=== PATIENT | male | born 1980 | race Caucasian/White ===

== ENCOUNTER → 2025-04-10 08:10 | Outpatient (BNVA) | payer SELFPAY | PROVIDERS: Visit Provider Specialist | DX: S42.001A Fracture of unspecified part of right clavicle, initial encounter for closed fracture (principal); X58.XXXA Exposure to other specified factors, initial encounter | CPT/HCPCS: 73000 ==

== ENCOUNTER 2025-04-10 12:41 | Day surgery (SDC) | payer OTHER, SELFPAY ==
[2025-04-10] VITALS (10 sets, daily range): BP systolic 103–130; BP diastolic 72–94; PULSE 78–107; RESP 16–21; TEMP 36.3–37; O2SAT 90–98; BMI 32.1
--- NOTE | 2025-04-10 | XR_ITS ---
WS: [id number] Exam: [place] [id number] Date/Time of Exam: 04/10/2025 12:00 AM Reason For Exam: OR PICS DLP: Intraoperative C-arm images of the RIGHT clavicle are submitted for evaluation. Images depict plate and screw fixation involving a comminuted fracture of the distal clavicle. Alignment appears satisfactory based on images presented.
[2025-04-10] MEDS: acetaminophen 1,000 MG/100 ML PIGGYBACK 400 MG IV (13:26)
--- NOTE | 2025-04-10 13:51 | ANES.PREANE2 ---
Pre-Anesthetic Assessment Height/Weight: Height 1.8 m Weight 104.326 kg O2 Del Method Room Air 04/10/25 13:03 Operation Date: 04/10/25 14:00 Proposed Procedures p Open Reduction Internal Fixation RIGHT Clavicle Fracture(Right) - Dina Stevens MD Familial anesthetic complications: none Was Beta Mary taken within 24 hours: N/A Was Clonidine taken within 24 hours: N/A Last intake: Intake Last Liquid Date 04/10/25 Last Liquid Time 06:00 Last Solid Date 04/10/25 Last Solid Time 06:00 Social No alcohol Exam alert, oriented x 3, clear to auscultation bilaterally and regular rate & rhythm Airway Mallampati: Class II Dentition: full Anesthetic Plan ASA status: 1 Anesthesia: General and Regional (specify below) Risk of > 500 ml blood loss (7ml/kg in children): No Medications/Allergies Home Medications ?Medication ?Instructions ?Recorded ?Confirmed ?Last Taken ?Type No Known Home Medications 04/10/25 04/10/25 Unknown History Allergies Allergy/AdvReac Type Severity Reaction Status Date / Time No Known Allergies Allergy Unverified 04/10/25 07:51 [facility] Anesthesia Social History Smoking and tobacco/nicotine status: never used tobacco/nicotine Anesthesia Procedures Nerve Block Nerve Block 1: Main Anesthesia: general anesthesia Time Out Performed: Yes Consent: requested by attending/covering physician, from patient, from other, risks and benefits reviewed and patient agrees to proceed Nerve block location: interscalene (R) Anesthesia monitors applied: pulse oximetry, EKG, BP cuff and oxygen Nerve block position: semi sitting Anesthetic Used: ropivicaine 0.5% (20 ml) and with decadron (4 mg) Ultrasound used to: recognize landmarks, visualize and ID brachial plexus, in supraclavicular region and visualize and ID interscalene groove Nerve Stimulator Used?: No Interscalene/Femoral BLK: 2 stimuplex 22 g needle used for position and inplane approach, visualize local anesthetic spread and no vascular puncture identified Injection: neg aspiration of heme and paresthesia +/- (parasthesia in hand - injection halted and needle redirected) Patient Tolerated Procedure: well Complications: none
--- NOTE | 2025-04-10 14:41 | W.PM.OPSFHP ---
Same Day Surgery H&P Indication for Procedure/HPI DATE OF PROCEDURE: April 10, 2025 CHIEF COMPLAINT/INDICATIONFOR SURGICAL PROCEDURE: Right midshaft clavicle fracture, comminuted and displaced PREOP DIAGNOSIS: Right midshaft clavicle fracture, comminuted and displaced PLANNED PROCEDURE: Operation Date: 04/10/25 14:00 Proposed Procedures p Open Reduction Internal Fixation RIGHT Clavicle Fracture(Right) - Dina Stevens MD Medications/Allergies* Home Medications ?Medication ?Instructions ?Recorded ?Confirmed ?Type No Known Home Medications 04/10/25 04/10/25 History Allergies/Adverse Reactions Allergy/AdvReac Type Severity Reaction Status Date / Time No Known Allergies Allergy Unverified 04/10/25 07:51 Pertinent History/Comorbid Conditions* Social History Smoking and tobacco/nicotine status: never used tobacco/nicotine Pertinent Exam Findings alert, oriented x 3, clear to auscultation bilaterally, regular rate & rhythm and operative site marked Recommendations Surgery/Procedure today Coding Level of Care Code Acute Code for Chg [id number]
[2025-04-10] MEDS: ceFAZolin 2,000 mg SDV 2000 MG IVP (14:45)
[2025-04-10] MEDS: ceFAZolin 1,000 mg SDV 1000 MG IRRIGATION (16:10)
--- NOTE | 2025-04-10 17:09 | P.OP_ITS ---
Operative Report Date of procedure: April 10, 2025 Pre-op diagnosis: Comminuted 100% displaced lateral third right clavicle fracture with comminution and significant shortening Post-op diagnosis: Comminuted 100% displaced lateral third right clavicle fracture with comminution and significant shortening Post-op findings: Horizontal in addition to transverse fracture with significant displacement and shortening of the clavicle Procedure done: Open reduction internal fixation right distal third clavicle fracture with shortening, comminution, and 100% displacement with bone grafting with [place] DBM plus paste with cancellous bone Implants: The Hitesh superior lateral clavicular plate, 4-hole; Hitesh DBM plus paste with cancellous bone Specimens removed/disposition: None Pathology: None Surgeon: Dina Stevens MD Global Compensation Analyst: Amy Panda, nurse practitioner, who services were required for positioning, retraction, fracture reduction and retention, and closure Anesthesia: General (Intubated, ASA 1) Estimated blood loss (mL): 60 IV fluids (mL): 1,200 Urine output (mL): 0 (No Morales) Complications: None Findings: As noted above Condition: stable Disposition: PACU (Then return to same-day surgery for discharge to home) Brief History: This 44-year-old gentleman was in his usual state of health when he was working on his vehicle at home. Vehicle slipped and came down on the right shoulder. He was in a lateral position and this caused compression across the shoulder. Patient had immediate onset of pain, he was evaluated and found to have by x-ray comminuted, 100% displaced and shortened clavicle fracture at the junction of the mid and distal thirds. The patient came to my office today for evaluation. Decision was made for surgical intervention. Risks and complications of surgery were discussed with the patient and his family. Consents were signed and questions were answered. Procedure: The patient was brought to the operating theater and underwent general intubated anesthesia, ASA 1. The patient was placed in a beachchair position and subsequently the right upper extremity was prepped and draped in the usual fashion utilizing DuraPrep. Fluoroscopy was used to evaluate the fracture throughout the surgical procedure. A surgical pause was performed prior to commencement of the surgical procedure. At the time of the surgical pause, we confirmed the site and side of surgery as well as administration of appropriate preoperative antibiotics Ancef 2 g. Following the surgical pause, an incision was following fluoroscopic evaluation along the clavicle. The incision was extended cephalad and caudad as necessary to address the fracture and placed the clavicular plate. Plate was chosen prior to incision by the use of fluoroscopy as well; however, the plan was changed after further anatomy of the fracture was realized. Dissection continued through skin and soft tissues using a scalpel. Hemostasis was obtained using electrocautery. The soft tissues were elevated off of the fracture fragments. There was significant comminution to the fracture primarily involving the more caudad portion of the fracture. This was in multiple pieces with both horizontal and transverse fragments. The fracture was able to be held was appropriate instruments and the plate was placed in position. The plate was then held in position with clamps and with 2 K wires. This position was evaluated. It was found that we had appropriate position of the plate and reduction of the fracture. Rather than the planned superior clavicle plate, due to the comminution, fracture pattern, and caudad nature of the fracture, plans are made for more of the superior lateral clavicle plate so that we can get better purchase in the most lateral fragment. At this point, using a combination of locked and nonlocking screws, we were able to attach the plate to the clavicle. Fluoroscopy was again utilized to evaluate screw length and appropriate position of the plate and fracture. Secondary to the degree of comminution, DBM putty was placed into the fracture site. This was accomplished without difficulty. At that point, being satisfied that the fracture was essentially anatomic, attention was directed to closure. The wound was irrigated and closure was accomplished with 0 Vicryl in the fascial tissues closing these over the clavicle. 2-0 Monocryl was used to close the subcutaneous tissues followed by 3-0 Monocryl subcuticular closure. This was followed by Dermabond, Steri-Strips, and OpSite. The patient was placed in a sling and was returned to the recovery room in satisfactory condition. The patient will be discharged to home to follow-up with me in the office as scheduled. There were no complications and no specimens. Related Problem List Diagnoses 1. Closed displaced fracture of acromial end of right clavicle, initial encounter:
--- NOTE | 2025-04-10 19:18 | SUR.PHASEII ---
Patients heart rate post op has been 98-108bpm. Blood pressure has been baseline and O2 is at 94-96% RA. Patient states he does not feel like his heart rate is high and does not feel short of breath or any discomfort. Dr. Kapoor notified of heart rate and she said he is ok to be D/C since asymptomatic. Patient placed on bus driver/monitor and HR appears NSR. Patient is awake and alert.
== END 2025-04-10 19:29 | disposition home or self-care (01) ==
PROVIDERS: Visit Provider Specialist
PROC: (CPT 23515; principal; 2025-04-10 13:40)
DX: S42.031A Displaced fracture of lateral end of right clavicle, initial encounter for closed fracture (principal); X58.XXXA Exposure to other specified factors, initial encounter
CPT/HCPCS: 23515; 73000; 76000; C1713; C1734; J0131; J0690; J1100; J1171; J2250; J2704; J2795; J3010; J3490; J7030; J9999

== ENCOUNTER → 2025-04-24 11:41 | Outpatient (BNVA) | payer OTHER, SELFPAY | PROVIDERS: Visit Provider Nurse Practitioner | DX: Z98.890 Other specified postprocedural states (principal) | CPT/HCPCS: 73000 ==

== ENCOUNTER → 2025-05-15 10:02 | Outpatient (BNVA) | payer OTHER, SELFPAY | PROVIDERS: Visit Provider Nurse Practitioner | DX: Z98.890 Other specified postprocedural states (principal) | CPT/HCPCS: 73000 ==

== ENCOUNTER → 2025-06-12 09:43 | Outpatient (BNVA) | payer OTHER, SELFPAY | PROVIDERS: Visit Provider Nurse Practitioner | DX: S42.031D Displaced fracture of lateral end of right clavicle, subsequent encounter for fracture with routine healing (principal); X58.XXXD Exposure to other specified factors, subsequent encounter | CPT/HCPCS: 73000 ==

== ENCOUNTER → 2025-07-03 09:48 | Outpatient (BNVA) | payer OTHER, SELFPAY | PROVIDERS: Visit Provider Nurse Practitioner | DX: Z98.890 Other specified postprocedural states (principal) | CPT/HCPCS: 73000 ==